=== PATIENT | female | born 1940 | race Caucasian/White ===

== ENCOUNTER 2019-03-25 14:55 | Inpatient (IN) | payer OTHER ==
[~2019-03-25] VITALS: Ht 170.2 cm; Wt 91.0 kg
[2019-03-25] MEDS ORDERED: PANTOPRAZOLE SODIUM 40 MG/VIAL IV ONE (16:00)
[2019-03-25 16:26] LABS: BASOPHILS % 0.9 % (0.0-2.0); EOSINOPHILS % 2.1 % (0.0-5.0); HEMATOCRIT. 33.5 % (36.0-48.0); HEMOGLOBIN. 10.9 g/dL (12.0-16.0); LYMPHOCYTES % 9.8 % (20.0-50.0); MEAN CORPUSCULAR HEMOGLOBIN 26.6 pg (28.0-32.0); MEAN CORPUSCULAR VOLUME 81.7 fL (81.0-99.0); MEAN PLATELET VOLUME 8.2 fl (7.4-10.4); MONOCYTES % 8.7 % (2.0-8.0); NEUTROPHILS % 78.5 % (40.0-76.0); PLATELET 322 x1000/uL (130-400); RED CELL DISTRIBUTION WIDTH 16.3 % (11.6-14.6)
[2019-03-25 16:29] LABS: CHLORIDE 101 mEq/L (98-107)
[2019-03-25 16:31] LABS: INR 1.1; PARTIAL THROMBOPLASTIN TIME 27.1 sec (23.4-31.0); PROTHROMBIN TIME 11.4 sec (9.6-11.0)
[2019-03-25] MEDS ORDERED: SODIUM CHLORIDE 0.9% 1000ML BAG (SEPSIS BOLUS) IV ONE (19:15)
[2019-03-25] MEDS ORDERED: VANCOMYCIN 1 G PREMIX 200 ML IV NR (20:15)
[2019-03-25] MEDS ORDERED: PIPERACILLIN/TAZ 3.375G PREMIX 50 ML IV NR (20:15)
[2019-03-25 20:45] LABS: HEMATOCRIT 32.6 % (36.0-48.0); HEMOGLOBIN 10.5 g/dL (12.0-16.0); MEAN CORPUSCULAR HEMOGLOBIN 26.4 pg (28.0-32.0); MEAN CORPUSCULAR VOLUME 81.6 fL (81.0-99.0); PLATELET 277 x1000/uL (130-400); RED BLOOD CELL COUNT 3.99 mill/uL (4.2-5.4); RED CELL DISTRIBUTION WIDTH 16.3 % (11.6-14.6)
[2019-03-26] MEDS: DEXT 5%/0.45% NACL 1000ML 1,000 ML IV SCH ×2 (10:30→23:50)
[2019-03-26] MEDS ORDERED: ONDANSETRON HCL 4MG/2ML INJ IV PRN (10:30)
[2019-03-26] MEDS ORDERED: ACETAMINOPHEN 325MG TABLET PO PRN (10:30)
[2019-03-26] MEDS ORDERED: DIATR MEGLU/DIATRIZOATE SOLN 30ML PO SCH (10:30)
[2019-03-26 11:36] VITALS: BP 113/67
[2019-03-26 11:47] VITALS: BP 113/67
[2019-03-26] MEDS: PANTOPRAZOLE SODIUM 40 MG/VIAL IV SCH (12:43)
[2019-03-26 13:20] LABS: BASOPHILS % 0.9 % (0.0-2.0); EOSINOPHILS % 5.6 % (0.0-5.0); HEMATOCRIT. 30.9 % (36.0-48.0); LYMPHOCYTES % 12.2 % (20.0-50.0); MEAN CORPUSCULAR HEMOGLOBIN 26.7 pg (28.0-32.0); MEAN CORPUSCULAR VOLUME 82.2 fL (81.0-99.0); MEAN PLATELET VOLUME 8.2 fl (7.4-10.4); MONOCYTES % 8.7 % (2.0-8.0); NEUTROPHILS % 72.6 % (40.0-76.0); PLATELET 266 x1000/uL (130-400); RED BLOOD CELL COUNT 3.76 mill/uL (4.2-5.4); RED CELL DISTRIBUTION WIDTH 16.1 % (11.6-14.6)
[2019-03-26 14:00] VITALS: BP 90/45
[2019-03-26 15:45] LABS: CLARITY URINE CLEAR (CLEAR); COLOR URINE YELLOW (YELLOW); KETONES URINE NEGATIVE (NEGATIVE); LEUKOCYTE ESTERASE URINE NEGATIVE (NEGATIVE); NITRITE URINE NEGATIVE (NEGATIVE); OCCULT BLOOD URINE 1+ (NEGATIVE); PROTEIN URINE TRACE (NEGATIVE); SPECIFIC GRAVITY URINE 1.007 (1.005-1.030); UROBILINOGEN URINE 0.2 E.U./dL (0.2-1.0)
[2019-03-26 16:01] VITALS: BP 95/50
[2019-03-26 16:15] LABS: *AMPHETAMINES SCREEN URINE NEGATIVE (NEGATIVE)
[2019-03-26 16:16] LABS: *BARBITURATES SCREEN URINE NEGATIVE (NEGATIVE); *BENZODIAZEPINES SCREEN URINE NEGATIVE (NEGATIVE); *COCAINE SCREEN URINE NEGATIVE (NEGATIVE)
[2019-03-26 16:17] LABS: CANNABINOID URINE SCREEN NEGATIVE (NEGATIVE); METHADONE URINE SCREEN NEGATIVE (NEGATIVE); OPIATES URINE SCREEN NEGATIVE (NEGATIVE); PHENCYCLIDINE URINE SCREEN NEGATIVE (NEGATIVE)
[2019-03-26 20:00] VITALS: BP 115/45
[2019-03-27] VITALS (8 sets, daily range): BP systolic 103–128; BP diastolic 46–65
[2019-03-27] MEDS: PANTOPRAZOLE SODIUM 40 MG/VIAL IV SCH (09:00)
[2019-03-27] MEDS: DEXT 5%/0.45% NACL 1000ML 1,000 ML IV SCH (13:10)
[2019-03-27 13:21] LABS: BASOPHILS % 0.8 % (0.0-2.0); EOSINOPHILS % 7.3 % (0.0-5.0); HEMATOCRIT. 33.4 % (36.0-48.0); HEMOGLOBIN. 10.8 g/dL (12.0-16.0); LYMPHOCYTES % 16.4 % (20.0-50.0); MEAN CORPUSCULAR HEMOGLOBIN 26.8 pg (28.0-32.0); MEAN CORPUSCULAR VOLUME 83.4 fL (81.0-99.0); MEAN PLATELET VOLUME 8.2 fl (7.4-10.4); MONOCYTES % 8.3 % (2.0-8.0); NEUTROPHILS % 67.2 % (40.0-76.0); PLATELET 306 x1000/uL (130-400); RED BLOOD CELL COUNT 4.01 mill/uL (4.2-5.4); RED CELL DISTRIBUTION WIDTH 16.4 % (11.6-14.6)
== END 2019-03-27 16:45 | disposition home or self-care (01) | DRG 377 ==
LOC: ER 14:55 → EDBEDREQ 18:01 → 3WST 20:08 → EDBEDREQTM 20:10 → EDBEDREQSVC 20:10 → ENRESERV 03-26 10:32 → 3WST 03-26 11:15
PROVIDERS: ADMIT Internal Medicine; ATTEND Internal Medicine
DX: K92.1 Melena (principal); N17.0 Acute kidney failure with tubular necrosis; E44.0 Moderate protein-calorie malnutrition; J43.9 Emphysema, unspecified; E11.9 Type 2 diabetes mellitus without complications; D64.9 Anemia, unspecified; Z59.0 Homelessness; Z85.028 Personal history of other malignant neoplasm of stomach; Z85.05 Personal history of malignant neoplasm of liver; Z68.31 Body mass index [BMI] 31.0-31.9, adult
CPT/HCPCS: 36415; 71045; 74176; 80048; 80053; 80305; 81003; 82270; 83036; 83605; 84145; 85025; 85027; 86850; 86900; 87106; 87804; 93005; 93970; 96365; 97162; 99291; C9113; J2543; J3370; J7030; Q9963